=== PATIENT | male | born 1965 | race Hispanic/Latino ===

== ENCOUNTER 2022-10-25 23:18 | Emergency (ER) | payer OTHER ==
[~2022-10-25] VITALS: Ht 177.8 cm; Wt 95.3 kg
[2022-10-26 00:07] LABS: CREATININE 0.8 mg/dL (0.5-1.5); POTASSIUM 3.7 mmol/L (3.5-5.1)
[2022-10-26 00:08] LABS: BASOPHILS % (AUTO) 0.4 % (0.0-5.0); EOSINOPHILS % (AUTO) 3.1 % (0.0-8.0); HEMATOCRIT 40.2 % (42-54); LYMPHOCYTES % (AUTO) 38.1 % (21.0-51.0); MEAN CORPUSCULAR HEMOGLOBIN 30.1 pg (27.0-33.0); MEAN CORPUSCULAR HGB CONC 33.6 g/dL (32.0-36.0); MEAN CORPUSCULAR VOLUME 89.5 fL (79-99); MONOCYTES % (AUTO) 8.2 % (3.0-13.0); NEUTROPHILS % (AUTO) 49.9 % (40.0-77.0); PLATELET COUNT (AUTO) 248 K/uL (130-400); RED BLOOD CELL COUNT(AUTO) 4.49 MIL/uL (4.50-6.20); RED CELL DISTRIBUTION WIDTH 12.5 % (11.0-15.5); WHITE BLOOD COUNT (AUTO) 7.5 K/uL (4.8-10.8)
[2022-10-26 00:11] LABS: ALBUMIN 3.6 g/dL (3.5-5.0); TOTAL PROTEIN, SERUM 7.1 g/dL (6.0-8.3)
[2022-10-26] MEDS ORDERED: IOHEXOL 350 MG/ML 100ML INFUS..BTL IV ONE (00:11)
[2022-10-26 00:14] LABS: APPEARANCE,URINE CLEAR (CLEAR); BILIRUBIN,URINE NEGATIVE (NEGATIVE); COLOR,URINE LIGHT-YELLOW (YELLOW); GLUCOSE, URINE (UA) >=1000 mg/dL (NEGATIVE); KETONES,URINE NEGATIVE (NEGATIVE); LEUKOCYTE ESTERASE ,URINE NEGATIVE Leu/uL (NEGATIVE); NITRATE,URINE NEGATIVE (NEGATIVE); OCCULT BLOOD,URINE NEGATIVE (NEGATIVE); PROTEIN,URINE NEGATIVE (NEGATIVE); UROBILINOGEN,URINE 0.2 mg/dL (0.2-1.0)
[2022-10-26 00:16] LABS: RBC,URINE 0-1 /HPF (0-1); WBC,URINE 0-1 /HPF (0-1)
[2022-10-26] MEDS ORDERED: KETOROLAC 30MG VIAL (30MG/ML) IVP ONE (00:30)
[2022-10-26] MEDS ORDERED: LIDOP TD (03:26)
[2022-10-26] MEDS ORDERED: IBUP-1493 PO (03:26)
[2022-10-26 04:00] VITALS: BP 132/61
== END 2022-10-26 04:21 | disposition home or self-care (01) ==
LOC: EDH 23:18
DX: S32.029A Unspecified fracture of second lumbar vertebra, initial encounter for closed fracture (principal); M19.90 Unspecified osteoarthritis, unspecified site; K44.9 Diaphragmatic hernia without obstruction or gangrene; K40.90 Unilateral inguinal hernia, without obstruction or gangrene, not specified as recurrent; E11.9 Type 2 diabetes mellitus without complications; I10 Essential (primary) hypertension; Z88.0 Allergy status to penicillin; Z90.49 Acquired absence of other specified parts of digestive tract; X58.XXXA Exposure to other specified factors, initial encounter; Y93.89 Activity, other specified; Y92.89 Other specified places as the place of occurrence of the external cause; Y99.8 Other external cause status
CPT/HCPCS: 99285; 71275; 71045; 82150; 82550; 80053; 83690; 85025; 81001; 36415; 74177; 93005; 96374; J1885; Q9967

== ENCOUNTER 2024-03-10 12:41 | Emergency (ER) | payer OTHER, SELFPAY ==
[~2024-03-10] VITALS: Ht 170.2 cm; Wt 79.4 kg
[~2024-03-10 12:41] MED LIST: IBUP-1493 PO; LIDOP TD
[2024-03-10 15:12] VITALS: BP 148/89; PULSE 90; RESP 18; O2SAT 98
[2024-03-10] MEDS ORDERED: IBUP-2077 PO (16:12)
== END 2024-03-10 17:27 | disposition home or self-care (01) ==
LOC: EDH 12:41
DX: G89.29 Other chronic pain (principal); M79.671 Pain in right foot; M79.674 Pain in right toe(s); I10 Essential (primary) hypertension; E11.9 Type 2 diabetes mellitus without complications; Z90.49 Acquired absence of other specified parts of digestive tract; Z98.890 Other specified postprocedural states; Z88.0 Allergy status to penicillin
CPT/HCPCS: 36415; 73630; 84550

== ENCOUNTER 2024-06-13 18:12 | Emergency (ER) | payer SELFPAY ==
[~2024-06-13] VITALS: Ht 170.2 cm; Wt 90.7 kg
[~2024-06-13 18:12] MED LIST changes: +IBUP-2077 PO
[2024-06-13 19:21] VITALS: BP 115/68; PULSE 74; RESP 18; TEMP 98.5; O2SAT 97
[2024-06-13] MEDS ORDERED: KETO10TA2 PO (20:33)
== END 2024-06-13 20:50 | disposition home or self-care (01) ==
LOC: EDH 18:12
DX: S92.321A Displaced fracture of second metatarsal bone, right foot, initial encounter for closed fracture (principal); E11.9 Type 2 diabetes mellitus without complications; I10 Essential (primary) hypertension; Z79.1 Long term (current) use of non-steroidal anti-inflammatories (NSAID); Z79.899 Other long term (current) drug therapy; Z88.0 Allergy status to penicillin; Z90.49 Acquired absence of other specified parts of digestive tract; W20.8XXA Other cause of strike by thrown, projected or falling object, initial encounter; Y93.89 Activity, other specified; Y92.89 Other specified places as the place of occurrence of the external cause; Y99.8 Other external cause status
CPT/HCPCS: 73630